=== PATIENT | male | born 1990 | race Hispanic/Latino ===

== ENCOUNTER 2017-05-12 12:23 | Emergency (ER) | payer OTHER ==
[2017-05-12 14:34] LABS: Urine Drugs of Abuse Note Disclamer
[2017-05-12 14:38] LABS: Basophils % (Auto) 0.5 % (0.0-1.8); Eosinophils % (Auto) 0.3 % (0.0-4.3); Hematocrit 44.2 % (35.5-45.6); Hemoglobin 15.1 gm/dl (11.8-15.2); Mean Corpuscular HGB Conc 34 % (32-34); Mean Corpuscular Hemoglobin 30 pg (28-32); Mean Corpuscular Volume 87 fl (84-94); Platelet Count 338 K/mm3 (140-440); Red Cell Distribution Width 14.8 % (13.2-15.2); White Blood Count 7.6 K/mm3 (4.5-11.0)
[2017-05-12 14:54] LABS: Anion Gap 17 mmol/L; Blood Urea Nitrogen 10 mg/dL (9-20); Calcium 10.3 mg/dL (8.4-10.2); Carbon Dioxide 27 mmol/L (22-30); Chloride 97.9 mmol/L (98-107); Glucose 96 mg/dL (75-100); Potassium 4.6 mmol/L (3.6-5.0); Sodium 137 mmol/L (137-145)
[2017-05-12 14:58] LABS: Bilirubin,Urine NEG (Negative); Blood,Urine NEG (Negative); Ketones,Urine NEG (Negative); Leukocyte Esterase,Urine NEG (Negative); Mucus,Urine FEW /HPF; Nitrite,Urine NEG (Negative); Protein,Urine <15 mg/dL mg/dL (Negative); Urobilinogen,Urine < 2.0 mg/dL (<2.0); WBC,Urine < 1.0 /HPF (0.0-6.0)
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
[2017-05-12] MEDS ORDERED: ATIVAN PO ONE (16:43)
[2017-05-12] MEDS ORDERED: GABAPENTIN 1000 MG PO SCH (22:27)
[2017-05-12] MEDS ORDERED: NON-FORMULARY (Quetiapine Fumarate [Seroquel Xr] 400 MG) PO SCH (22:28)
[2017-05-12] MEDS ORDERED: MOTRIN PO PRN (22:28)
[2017-05-12] MEDS ORDERED: NEURONTIN ONE ×2 (22:37)
[2017-05-12] MEDS: NEURONTIN PO SCH ×2 (22:39)
[2017-05-12] MEDS: ELAVIL PO SCH (22:48)
[2017-05-13] MEDS ORDERED: NON-FORMULARY (Quetiapine Fumarate [Seroquel Xr] 200 MG) PO SCH (10:00)
[2017-05-13] MEDS: ELAVIL PO SCH ×2 (10:36→21:44)
[2017-05-13] MEDS: NEURONTIN PO SCH ×4 (10:36→21:46)
[2017-05-14] MEDS: ELAVIL PO SCH ×2 (11:36→21:41)
[2017-05-14] MEDS: NEURONTIN PO SCH ×4 (11:36→21:42)
[2017-05-14] MEDS ORDERED: NEURONTIN PO ONE (12:00)
--- NOTE | 2017-05-14 13:37 | Consultation ---
History of Present Illness - Reason for Consult Consult date: 05/14/17 Reason for consult: psychiatric evaluation - Chief Complaint Chief complaint: "I want to get off heroin and cocaine." - History of Present Psychiatric Illness 27 year old male seen for psychiatric evaluation. He reports expressing suicidal ideation when he went to [place]. He states his intention is to get help for heroin and cocaine addiction. He uses one gram of each daily. His last use was 2 days ago. He was sent to the ER from there. Pt reports an extensive hx of substance abuse as well as overdoses. Although he denies those overdoses to be intentional. He currently denies suicidal ideation. He later stated he used more than he normally does and did not care what happened to him. Pt reports withdrawals as chills, shaking and sweating. No psychotic symptoms. He reports agitation and mood swings. He reports a history of bipolar disorder and daily use of Seroquel 200mg qam and 400mg hs. Medications and Allergies Allergies Allergy/AdvReac Type Severity Reaction Status Date / Time haloperidol [From Haldol] Allergy Unknown Verified 12/27/15 18:45 haloperidol lactate Allergy Unknown Verified 05/12/17 12:51 [From Haldol] Home Medications Medication Instructions Recorded Confirmed Last Taken Type Amitriptyline [Elavil] 100 mg PO BID 05/12/17 05/12/17 Unknown History Gabapentin [Neurontin] 1,000 mg PO BID 05/12/17 05/12/17 Unknown History Quetiapine Fumarate [SEROquel XR] 200 mg PO QAM 05/12/17 05/12/17 Unknown History Quetiapine Fumarate [SEROquel XR] 400 mg PO QPM 05/12/17 05/12/17 Unknown History Active Meds: Active Medications Amitriptyline HCl (Elavil) 100 mg PO BID [facility] Last Admin: 05/14/17 11:36 Dose: 100 mg Gabapentin (Neurontin) 800 mg PO BID [facility] Last Admin: 05/14/17 11:36 Dose: 800 mg Gabapentin (Neurontin) 200 mg PO BID [facility] Last Admin: 05/14/17 11:37 Dose: 200 mg Ibuprofen (Motrin) 600 mg PO Q8HR PRN PRN Reason: Pain Quetiapine Fumarate (Seroquel) 400 mg PO QPM [facility] Last Admin: 05/13/17 18:38 Dose: 400 mg Quetiapine Fumarate (Seroquel) 200 mg PO QAM [facility]IN[facility] Last Admin: 05/14/17 12:05 Dose: 200 mg Past psychiatric history - past Psychiatric treatment and history psychiatric treatment history: hospitalized at [facility] 02/2017 and started on suboxone Mental Status Exam - Vital signs Last Vital Signs Temp 97.7 F 05/13/17 14:46 Pulse 81 05/13/17 14:46 Resp 18 05/13/17 14:46 BP 124/74 05/13/17 14:46 Pulse Ox 99 05/13/17 14:46 Results Result Diagrams: 05/12/17 14:25 05/12/17 14:25 All other labs normal. Assessment and Plan Assessment and plan: Impression: substance induced mood disorder opioid use disorder, severe cocaine use disorder he voiced suicidal ideation when seeking help initially but later denied it. Recommendation: He reports restlessness with seroquel Continue seroquel 200mg qam and 400mg hs Add cogentin 1mg hs for eps prevention
[2017-05-14] MEDS: COGENTIN PO SCH (21:44)
[2017-05-15] MEDS: NEURONTIN PO SCH ×4 (10:05→22:04)
[2017-05-15] MEDS: ELAVIL PO SCH ×2 (10:05→22:03)
[2017-05-15] MEDS: COGENTIN PO SCH (22:03)
[2017-05-16] MEDS: ELAVIL PO SCH ×2 (10:02→22:03)
[2017-05-16] MEDS: NEURONTIN PO SCH ×4 (10:02→22:04)
[2017-05-16] MEDS ORDERED: ZOFRAN ODT PO PRN (16:13)
--- NOTE | 2017-05-16 16:17 | Progress Note ---
Subjective - Reason for Consult Consult date: 05/16/17 Reason for consult: Psychiatry Follow-up - Chief Complaint Chief complaint: "How are you" 27 year old male seen for psychiatric evaluation. He reports expressing suicidal ideation when he went to [place]. He states his intention is to get help for heroin and cocaine addiction. Today patient is calm and cooperative during assessment. He stated that he would like help for his opioid addiction. He stated that he want information about [facility] for outpatient rehab services. He denies SI/HI's and AVH's. He stated that he slept 4 hours last night and denies a poor appetite. He denies any side effects of his medications. Patient had a extensive hx of substance and opiod abuse. Mental Status Exam - Vital signs Last Vital Signs Temp 98.4 F 05/16/17 12:41 Pulse 79 05/16/17 12:41 Resp 18 05/16/17 12:43 BP 123/57 05/16/17 12:41 Pulse Ox 98 05/16/17 12:43 - Exam Narrative exam: MSE: Appearance: calm, cooperative Behavior: regular eye contact Speech: regular rate and tone Mood: "okay" Affect: congruent to mood Thought Process: linear Thought Content: Denies SI/HI's and AVH's Motor Activity: ambulatory Cognition: A/Ox 3 Insight: fair Judgment: fair Assessment and Plan Impression: Historical Dx: Bipolar DO/Depression. Opioid Use Disorder. Substance Use DO (cocaine/marijuana). Today patient is calm and cooperative during assessment. Patient reports nausea and anxiety. Positive for marijuana, opiate, and cocaine. Recommendation/Plan: Evaluate 1013 in 24 hours to determine proper dispo. Continue current medication regimen. Start Vistaril 25 mg Q6hrs PRN for anxiety and Zofran 4 mg ODT Q6hrs for nausea. Discussed possible suicidality/medication induced randi with patient reference [place]. Monitor patient from opioid withdrawals.
[2017-05-16] MEDS ORDERED: VISTARIL PO PRN (16:51)
[2017-05-16] MEDS: COGENTIN PO SCH (22:03)
[2017-05-17] MEDS: ELAVIL PO SCH (11:11)
[2017-05-17] MEDS: NEURONTIN PO SCH ×2 (11:12)
--- NOTE | 2017-05-17 13:38 | Progress Note ---
Subjective - Reason for Consult Consult date: 05/17/17 Reason for consult: Psychiatry Follow-up - Chief Complaint Chief complaint: "How are you" 27 year old male seen for psychiatric evaluation. He reports expressing suicidal ideation when he went to [place]. He states his intention is to get help for heroin and cocaine addiction. Today patient is calm and cooperative during assessment. He admitted that he was't suicidal on admission. He stated that his mother told him to say he was suicidal to get help for his opioid addiction. He denies SI/HI's, AVH's, and depression. He stated, "I have to much to live for to want to ." He denies any side effects of his medications. Patient had a extensive hx of substance and opiod abuse. Mental Status Exam - Vital signs Last Vital Signs Temp 97 F L 05/16/17 20:34 Pulse 78 05/16/17 20:34 Resp 18 05/17/17 03:12 BP 111/60 05/16/17 20:34 Pulse Ox 98 05/16/17 20:34 - Exam Narrative exam: MSE: Appearance: calm, cooperative Behavior: regular eye contact Speech: regular rate and tone Mood: "well" Affect: congruent to mood Thought Process: linear Thought Content: Denies SI/HI's and AVH's Motor Activity: ambulatory Cognition: A/Ox 3 Insight: fair Judgment: fair Assessment and Plan Impression: Historical Dx: Bipolar DO/Depression. Opioid Use Disorder. Substance Use DO (cocaine/marijuana). Today patient is calm and cooperative during assessment. Patient reports no withdrawal symptoms. Positive for marijuana, opiate, and cocaine. Recommendation/Plan: Rescind 1013. Continue current medication regimen. Discussed possible suicidality/medication induced randi with patient reference [place]. Patient given outpatient rehab services for [facility].
[2017-05-17 17:04] VITALS: BP 109/66
--- NOTE | 2017-05-17 19:25 | Emergency Department Report ---
ED Psych HPI - General Chief Complaint: Psych Stated Complaint: SUICIDAL /MH Time Seen by Provider: 05/12/17 16:24 Source: patient, family Mode of arrival: Ambulatory - Related Data Home Medications Medication Instructions Recorded Confirmed Last Taken Amitriptyline [Elavil] 100 mg PO BID 05/12/17 05/12/17 Unknown Gabapentin [Neurontin] 1,000 mg PO BID 05/12/17 05/12/17 Unknown Quetiapine Fumarate [SEROquel XR] 200 mg PO QAM 05/12/17 05/12/17 Unknown Quetiapine Fumarate [SEROquel XR] 400 mg PO QPM 05/12/17 05/12/17 Unknown Allergies Allergy/AdvReac Type Severity Reaction Status Date / Time haloperidol [From Haldol] Allergy Unknown Verified 12/27/15 18:45 haloperidol lactate Allergy Unknown Verified 05/12/17 12:51 [From Haldol] ED Review of Systems ROS: Stated complaint: SUICIDAL /MH Other details as noted in HPI Constitutional: denies: chills, fever Eyes: denies: eye pain, eye discharge, vision change Neurological: as per HPI Psychiatric: depression, suicidal thoughts ED Past Medical Hx - Past Medical History Previous Medical History?: Yes Hx Congestive Heart Failure: No Hx Diabetes: No Hx Psychiatric Treatment: Yes (substance abuse) Hx Asthma: No Hx COPD: No - Surgical History Past Surgical History?: Yes Additional Surgical History: B/L legs. L wrist - Social History Smoking Status: Current Every Day Smoker Substance Use Type: Alcohol, Cocaine, Heroin - Medications Home Medications: Home Medications Medication Instructions Recorded Confirmed Last Taken Type Amitriptyline [Elavil] 100 mg PO BID 05/12/17 05/12/17 Unknown History Gabapentin [Neurontin] 1,000 mg PO BID 05/12/17 05/12/17 Unknown History Quetiapine Fumarate [SEROquel XR] 200 mg PO QAM 05/12/17 05/12/17 Unknown History Quetiapine Fumarate [SEROquel XR] 400 mg PO QPM 05/12/17 05/12/17 Unknown History ED Physical Exam - General Limitations: No Limitations ED Course Vital Signs 05/12/17 05/12/17 05/12/17 12:43 16:09 22:00 Temperature 98.7 F 98.3 F 98.9 F Pulse Rate 74 69 62 Respiratory 16 18 20 Rate Blood Pressure 144/90 Blood Pressure 136/79 [Left] Blood Pressure 136/79 130/74 [Right] O2 Sat by Pulse 99 97 99 Oximetry 05/13/17 05/13/17 05/14/17 13:44 14:46 10:00 Temperature 97.7 F 98.4 F Pulse Rate 81 82 Respiratory 18 18 18 Rate Blood Pressure Blood Pressure [Left] Blood Pressure 124/74 128/74 [Right] O2 Sat by Pulse 99 99 97 Oximetry 05/14/17 05/14/17 05/15/17 14:07 22:00 08:09 Temperature 97.9 F 98.2 F Pulse Rate 81 78 Respiratory 18 18 16 Rate Blood Pressure Blood Pressure [Left] Blood Pressure 138/98 131/76 [Right] O2 Sat by Pulse 99 99 100 Oximetry 05/15/17 05/16/17 05/16/17 22:00 12:41 12:43 Temperature 97.5 F L 98.4 F Pulse Rate 89 79 Respiratory 18 18 18 Rate Blood Pressure Blood Pressure [Left] Blood Pressure 118/82 123/57 [Right] O2 Sat by Pulse 98 98 98 Oximetry 05/16/17 05/17/17 05/17/17 20:34 03:12 08:30 Temperature 97 F L 98.4 F Pulse Rate 78 78 Respiratory 18 18 18 Rate Blood Pressure Blood Pressure [Left] Blood Pressure 111/60 109/66 [Right] O2 Sat by Pulse 98 96 Oximetry 05/17/17 16:54 Temperature Pulse Rate Respiratory 20 Rate Blood Pressure Blood Pressure [Left] Blood Pressure [Right] O2 Sat by Pulse 100 Oximetry ED Medical Decision Making - Lab Data Result diagrams: 05/12/17 14:25 05/12/17 14:25 - Medical Decision Making Patient is a 27-year-old male who is here on 1013 for bipolar and depression. Patient was given outpatient resources to think he needs and was observed for sending him out time in the emergency department. His 1013 was rescinded by psychiatry. Critical care attestation.: If time is entered above; I have spent that time in minutes in the direct care of this critically ill patient, excluding procedure time. ED Disposition Clinical Impression: Suicidal ideations, Depression Disposition: DC-01 TO HOME OR SELFCARE Is pt being admited?: No Condition: Stable Instructions: Suicide Prevention for Adults (ED), Depression (ED) Additional Instructions: Please follow up with outpatient rehabilitation at [facility] Referrals: PRIMARY CARE, [Primary Care Provider] - 3-5 Days
== END 2017-05-17 19:39 | disposition home or self-care (01) ==
LOC: ED 12:23 → EEVIPCON 12:23 → ED 05-17 19:39
DX: R45.851 Suicidal ideations (principal); F14.10 Cocaine abuse, uncomplicated; F19.10 Other psychoactive substance abuse, uncomplicated; F10.10 Alcohol abuse, uncomplicated
CPT/HCPCS: 36415; 80048; 80307; 81001; 85025; 99285; G0480; 80320